=== PATIENT | male | born 1980 | race African-American/Black ===

== ENCOUNTER 2018-02-18 | Emergency (ER) | payer SELFPAY ==
--- NOTE | 2018-02-18 16:58 | ER ---
Nurse's Notes [facility] Name: Richie Page Jr Age: 37 yrs Sex: Male : 1980 Arrival Date: 02/18/2018 Time: 15:07 Bed 10 Private MD: Diagnosis: Low back pain Presentation: 02/18 15:23 Presenting complaint: Patient states: i have lower back pain that started over a week hj now, dont know if i hurt it; denies nausea and vomiting; denies burning urination; denies fever and chills;. Transition of care: patient was not received from another setting of care. Onset of symptoms was February 18, 2018. Care prior to arrival: None. 15:23 Method Of Arrival: Ambulatory 15:23 Acuity: CLINT 4 hj Triage Assessment: 15:25 General: Appears in no apparent distress. uncomfortable, Behavior is calm, cooperative, hj appropriate for age. Pain: Complains of pain in left low back and right low back. Historical: - Allergies: 15:24 No Known Allergies; hj - Home Meds: 15:24 None [Active]; hj - PMHx: 15:24 None; hj - PSHx: 15:24 None; hj - Immunization history:: Adult Immunizations. - Social history:: Smoking status: Patient/guardian denies using tobacco. Screenin:00 Abuse screen: Denies threats or abuse. Denies injuries from another. Nutritional sg screening: No deficits noted. Tuberculosis screening: No symptoms or risk factors identified. Never had TB. Fall Risk None identified. Assessment: 17:48 General: Appears in no apparent distress. comfortable, well groomed, well developed, sg well nourished, Behavior is calm, cooperative, appropriate for age, Smells of alcohol. Pain: Complains of pain in lumbar area Pain does not radiate. Quality of pain is described as aching, spasms. Neuro: Level of Consciousness is awake, alert, obeys commands, Oriented to person, place, time, situation, Speech Pathology Supervisor are equal bilaterally Speech is normal, Facial symmetry appears normal. Cardiovascular: Heart tones S1 S2 present Capillary refill is brisk in bilateral fingers Patient's skin is warm and dry. Respiratory: Airway is patent Respiratory effort is even, unlabored, Respiratory pattern is regular, symmetrical. GI: No signs and/or symptoms were reported involving the gastrointestinal system. : No signs and/or symptoms were reported regarding the genitourinary system. EENT: No signs and/or symptoms were reported regarding the EENT system. Derm: Skin is intact, is healthy with good turgor, Skin is dry, Skin is normal, Skin temperature is warm. Musculoskeletal: Circulation, motion, and sensation intact. Range of motion: intact in all extremities, Swelling absent Reports pain in left low back and right mid back. Vital Signs: 15:25 BP 123 / 93; Pulse 74; Resp 18; Temp 98.0(TE); Pulse Ox 100% on R/A; Weight 83.91 kg; hj Height 5 ft. 11 in. (180.34 cm); Pain 10/10; 16:30 BP 122 / 82; Pulse 77; Resp 18; Pulse Ox 99% on R/A; Pain 10/10; sg 15:25 Body Mass Index 25.80 (83.91 kg, 180.34 cm) ED Course: 15:07 Patient arrived in ED. rg4 15:24 Triage completed. 15:25 Arm band placed on left wrist. 16:23 Mac Carey PA is PHCP. [facility] 16:23 Joe Springer MD is Attending Physician. jr 16:30 Patient has correct armband on for positive identification. Bed in low position. Call sg light in reach. Pulse ox on. NIBP on. 16:33 Bj Del Cid, RN is Primary Nurse. 17:00 No provider procedures requiring assistance completed. Patient did not have IV access sg during this emergency room visit. Administered Medications: No medications were administered Outcome: 16:57 Discharge ordered by . [facility] 17:00 Discharged to home ambulatory, with family. 17:00 Condition: good 17:00 Discharge instructions given to patient, Instructed on discharge instructions, follow up and referral plans. medication usage, safety practices, Demonstrated understanding of instructions, follow-up care, medications, Prescriptions given X 2. 17:05 Patient left the ED. em Signatures: Bj Del Cid, RN RN Rakan Gillis, DIRECT SERVICE PROFESSIONAL DIRECT SERVICE PROFESSIONAL em Mac Carey PA PA [facility] Laurent Le RN RN hj Garcia, Rubi rg4 Corrections: (The following items were deleted from the chart) 15:26 15:25 Resp 18bpm; Pulse Ox 100% RA; Temp 98.0F Temporal; 83.91 kg; Height 5 ft. 11 in.; BMI: 25.8; Pain 10/10; hj 16:18 15:23 Acuity: CLINT 3 hj hj
--- NOTE | 2018-02-18 16:58 | EDPHYS ---
Physician Documentation [facility] Name: Richie Page Jr Age: 37 yrs Sex: Male : 1980 Arrival Date: 02/18/2018 Time: 15:07 Bed 10 Private MD: ED Physician Joe Springer HPI: 02/18 17:00 This 37 yrs old Black Male presents to ER via Ambulatory with complaints of Low Back jr8 Pain. 17:00 The patient presents with pain that is acute. The symptoms are located in the low back. jr8 The pain does not radiate. Onset: The symptoms/episode began/occurred acutely, 2 day(s) ago. Modifying factors: The patient symptoms are alleviated by nothing, the patient symptoms are aggravated by bending, movement. Associated signs and symptoms: The patient has no apparent associated signs or symptoms. Severity of symptoms: At their worst the symptoms were moderate, in the emergency department the symptoms are unchanged. The patient has not experienced similar symptoms in the past. The patient has not recently seen a physician. Patient stated that he was picking up and moving a special needs family member. Since then has had pain in low back with movement and bending . Historical: - Allergies: 15:24 No Known Allergies; hj - Home Meds: 15:24 None [Active]; hj - PMHx: 15:24 None; hj - PSHx: 15:24 None; hj - Immunization history:: Adult Immunizations. - Social history:: Smoking status: Patient/guardian denies using tobacco. ROS: 17:00 Eyes: Negative for injury, pain, redness, and discharge, ENT: Negative for injury, jr8 pain, and discharge, Neck: Negative for injury, pain, and swelling, Cardiovascular: Negative for chest pain, palpitations, and edema, Respiratory: Negative for shortness of breath, cough, wheezing, and pleuritic chest pain, Abdomen/GI: Negative for abdominal pain, nausea, vomiting, diarrhea, and constipation, MS/Extremity: Negative for injury and deformity, Skin: Negative for injury, rash, and discoloration, Neuro: Negative for headache, weakness, numbness, tingling, and seizure. 17:00 Back: Positive for decreased range of motion, pain at rest, pain with movement, of the low back area, Negative for radiated pain. Exam: 17:00 Eyes: Pupils equal round and reactive to light, extra-ocular motions intact. Lids and jr8 lashes normal. Conjunctiva and sclera are non-icteric and not injected. Cornea within normal limits. Periorbital areas with no swelling, redness, or edema. ENT: Nares patent. No nasal discharge, no septal abnormalities noted. Tympanic membranes are normal and external auditory canals are clear. Oropharynx with no redness, swelling, or masses, exudates, or evidence of obstruction, uvula midline. Mucous membranes moist. Neck: Trachea midline, no thyromegaly or masses palpated, and no cervical lymphadenopathy. Supple, full range of motion without nuchal rigidity, or vertebral point tenderness. No Meningismus. Cardiovascular: Regular rate and rhythm with a normal S1 and S2. No gallops, murmurs, or rubs. Normal PMI, no JVD. No pulse deficits. Respiratory: Lungs have equal breath sounds bilaterally, clear to auscultation and percussion. No rales, rhonchi or wheezes noted. No increased work of breathing, no retractions or nasal flaring. Abdomen/GI: Soft, non-tender, with normal bowel sounds. No distension or tympany. No guarding or rebound. No evidence of tenderness throughout. Skin: Warm, dry with normal turgor. Normal color with no rashes, no lesions, and no evidence of cellulitis. MS/ Extremity: Pulses equal, no cyanosis. Neurovascular intact. Full, normal range of motion. Neuro: Awake and alert, GCS 15, oriented to person, place, time, and situation. Cranial nerves II-XII grossly intact. Motor strength 5/5 in all extremities. Sensory grossly intact. Cerebellar exam normal. Normal gait. 17:00 Back: pain, that is moderate, of the left low back and right low back, ROM is painful, normal spinal alignment noted, CVA tenderness, is absent, muscle spasm, is appreciated in the left low back, left mid back, right mid back and right low back. Vital Signs: 15:25 BP 123 / 93; Pulse 74; Resp 18; Temp 98.0(TE); Pulse Ox 100% on R/A; Weight 83.91 kg; hj Height 5 ft. 11 in. (180.34 cm); Pain 10/10; 16:30 BP 122 / 82; Pulse 77; Resp 18; Pulse Ox 99% on R/A; Pain 10/10; sg 15:25 Body Mass Index 25.80 (83.91 kg, 180.34 cm) hj MDM: 16:23 Patient medically screened. jr8 16:56 Data reviewed: vital signs, nurses notes, and as a result, I will discharge patient. jr8 Data interpreted: Pulse oximetry: on room air is 100 %. Interpretation: normal. Counseling: I had a detailed discussion with the patient and/or guardian regarding: the historical points, exam findings, and any diagnostic results supporting the discharge/admit diagnosis, the need for outpatient follow up, a family practitioner, to return to the emergency department if symptoms worsen or persist or if there are any questions or concerns that arise at home. Administered Medications: No medications were administered Disposition: 18:34 Co-signature as Attending Physician, Joe Springer MD. rn Disposition: 02/18/18 16:57 Discharged to Home. Impression: Low back pain. - Condition is Stable. - Discharge Instructions: Back Pain, Adult, Musculoskeletal Pain, Back Exercises, [id number], Heat Therapy. - Prescriptions for Ibuprofen 800 mg Oral Tablet - take 1 tablet by ORAL route every 12 hours As needed take with food; 20 tablet. Cyclobenzaprine 10 mg Oral Tablet - take 1 tablet by ORAL route every 8 hours As needed; 30 tablet. - Work release form, Medication Reconciliation Form, Thank You Letter, Antibiotic Education, Prescription Opioid Use form. - Follow up: Private Physician; When: 1 week; Reason: Recheck today's complaints, Continuance of care, Re-evaluation by your physician. - Problem is new. - Symptoms have improved. Signatures: Bj Del Cid, RN RN Rakan Gillis, CONVOLUTE TUBE WINDER CONVOLUTE TUBE WINDER Joe Randolph MD MD rn Roszak, Josh, PA PA jr8 Laurent Le RN RN
== END 2018-02-18 17:05 | disposition home or self-care (01) ==
DX: M54.5 Low back pain (principal)
CPT/HCPCS: 99283